=== PATIENT | male | born 1995 | race African-American/Black ===

== ENCOUNTER 2019-07-31 08:24 | Inpatient (IN) | payer MEDICAID, OTHER ==
--- NOTE | 2019-07-31 08:41 | ED ---
General Adult HPI - General Chief complaint: Psychiatric Symptoms Stated complaint: EPS eval Time Seen by Provider: 07/31/19 08:36 Source: patient, police, RN notes reviewed Mode of arrival: ambulatory - History of Present Illness Initial comments: Patient is a pleasant 24-year-old male presenting to the emergency Department with depression and suicidal thoughts. Patient admits that he is schizophrenic and has not been taking his medication. Patient has multiple stressors. No homicidal thoughts. No new physical complaints. Patient does admit to having some hallucinations. Patient also admits to feeling paranoid. Patient has not been sleeping well recently. Patient has not been eating or drinking well. - Related Data Allergies Allergy/AdvReac Type Severity Reaction Status Date / Time No Known Allergies Allergy Verified 07/31/19 08:25 Review of Systems ROS Statement: Those systems with pertinent positive or pertinent negative responses have been documented in the HPI. ROS Other: All systems not noted in ROS Statement are negative. Constitutional: Denies: fever Eyes: Denies: eye pain ENT: Denies: ear pain Respiratory: Denies: cough Cardiovascular: Denies: chest pain Endocrine: Denies: fatigue Gastrointestinal: Denies: abdominal pain Genitourinary: Denies: dysuria Musculoskeletal: Denies: back pain Skin: Denies: rash Neurological: Denies: weakness Psychiatric: Reports: as per HPI Past Medical History Past Medical History: No Reported History Past Surgical History: No Surgical Hx Reported Past Psychological History: Schizophrenia Smoking Status: Current every day smoker Past Alcohol Use History: Occasional Past Drug Use History: Cocaine, Marijuana General Exam Limitations: no limitations General appearance: alert, in no apparent distress Head exam: Present: normocephalic Eye exam: Present: normal appearance Neck exam: Present: normal inspection Respiratory exam: Present: normal lung sounds bilaterally Cardiovascular Exam: Present: regular rate, normal rhythm GI/Abdominal exam: Present: soft. Absent: tenderness Extremities exam: Present: normal inspection Neurological exam: Present: alert Psychiatric exam: Present: flat affect Skin exam: Present: normal color Course Vital Signs 07/31/19 08:25 Temperature 98.8 F Pulse Rate 80 Respiratory 18 Rate Blood Pressure 125/74 O2 Sat by Pulse 98 Oximetry Medical Decision Making - Medical Decision Making Patient seen by mental health services, who will admit. - Lab Data Lab Results 07/31/19 Range/Units 08:34 Urine Opiates Screen Not Detected (NotDetected) Ur Oxycodone Screen Not Detected (NotDetected) Urine Methadone Screen Not Detected (NotDetected) Ur Propoxyphene Screen Not Detected (NotDetected) Ur Barbiturates Screen Not Detected (NotDetected) U Tricyclic Antidepress Not Detected (NotDetected) Ur Phencyclidine Scrn Not Detected (NotDetected) Ur Amphetamines Screen Not Detected (NotDetected) U Methamphetamines Scrn Not Detected (NotDetected) U Benzodiazepines Scrn Detected H (NotDetected) Urine Cocaine Screen Detected H (NotDetected) U Marijuana (THC) Screen Not Detected (NotDetected) Disposition Clinical Impression: Depression, Suicidal ideation, Chronic schizophrenia Disposition: TRANSFER TO PSYCH HOSP/UNIT Is patient prescribed a controlled substance at d/c from ED?: No Referrals: None,Stated [Primary Care Provider] - 1-2 days Decision Time: 10:29
[2019-07-31 10:02] LABS: Amphetamine Screen,Urine Not Detected (NotDetected); Barbiturate Screen,Urine Not Detected (NotDetected); Benzodiazepines Screen,Urine Detected (NotDetected); Cocaine Screen,Urine Detected (NotDetected); Methadone Screen, Urine Not Detected (NotDetected); Opiate Screen,Urine Not Detected (NotDetected); Oxycodone Screen, Urine Not Detected (NotDetected); Phencyclidine Screen,Urine Not Detected (NotDetected); Tricyclic Antidepressant,Urine Not Detected (NotDetected); Urn Cannabinoid Scrn Not Detected (NotDetected)
[2019-07-31] MEDS ORDERED: MAGNESIUM HYDROXIDE 2,400 MG/10 ML CUP PO PRN (12:33)
[2019-07-31] MEDS ORDERED: LORazepam 1 MG TAB PO PRN (12:33)
[2019-07-31] MEDS ORDERED: ACETAMINOPHEN TAB 325 MG TAB PO PRN (12:33)
[2019-07-31] MEDS ORDERED: MAG HYDROX/AL HYDROX/SIMETH 30 ML CUP PO PRN (12:33)
[2019-07-31] MEDS ORDERED: ZIPRASIDONE 20 MG VIAL IM PRN (12:33)
[2019-07-31] MEDS ORDERED: LORazepam 2 MG/ML INJ IM PRN (12:36)
[2019-07-31] MEDS: NICOTINE 7MG/24HR PATCH TRANSDERM SCH (12:56)
[2019-07-31] MEDS ORDERED: INFLUENZA VACCINE (6 MOS+) 60 MCG/0.5 ML SYRINGE IM ONE (12:58)
[2019-07-31 13:00] LABS: Appearance,Urine Clear (Clear); Bacteria,Urine Rare /hpf; Bilirubin,Urine Negative (Negative); Blood,Urine Negative (Negative); Color,Urine Yellow; Glucose,Urine (UA) Negative (Negative); Ketones,Urine Negative (Negative); Leukocyte Esterase,Urine Trace (Negative); Mucus,Urine Few /hpf; Nitrite,Urine Negative (Negative); Protein,Urine Negative (Negative); Specific Gravity,Urine 1.031 (1.001-1.035); Squamous Epithelial Cell,Urine <1 /hpf (0-4); WBC,Urine 1 /hpf (0-5)
--- NOTE | 2019-07-31 13:12 | P.HP ---
Psychiatric H&P - . H&P Date: 07/31/19 History & Physical: IDENTIFYING DATA: The patient is a 24-year-old homeless -Slovak male admitted to the psychiatric unit with complaints of suicidal ideation. HISTORY OF PRESENT ILLNESS: I reviewed the medical record and attempted to interview the patient. He was irritable and minimally cooperative. He stated that he presented to Hospital because he was having "suicidal thoughts". He is unwilling or unable to explained himself further. He repeatedly requested to leave the interview because he was "tired". He denied other symptoms other than having suicidal thoughts. He has been living in [facility] for 3 days. Last night he slept [place] a [place] [facility]. He alleged she came to [place] accidentally after having fallen asleep on a SMART bus from [place] (there are no SMART bus lines from [place] to [place]). According to the EPS assessment the police brought him to the ER. He complained of suicidal ideation. He alleged that he has a history of schizophrenia and was hospitalized in [place]. He told the EPS nurse that he had thought about jumping off a bridge. During our interview he alleged that he was discharged from [place] "a years ago". He acknowledged that he feels depressed but would not answer questions about depressive symptoms or the duration depressive feelings. He denied persistent anxiety that he is unable to control. He denied obsessions or compulsions. He denied experiencing auditory, visual or olfactory hallucinations. He denied ideas reference, thought insertion or thought broadcasting. He denied recent alcohol use. He smoked crack cocaine "couple days ago". He denied use of other drugs just methamphetamine, heroin, or opioid pain medications and marijuana. His UDS was positive for benzodiazepines and cocaine. He is BAT was 0. PAST PSYCHIATRIC HISTORY: He gave conflicting information about his past psychiatric history. This is apparently his second psychiatric hospitalization. He denied that he has been taking psychotropic medications. PAST MEDICAL HISTORY: He denied chronic medical illnesses ALLERGIES: Known drug ALLERGIES SUBSTANCE USE HISTORY: He was guarded about his substance use history. He admitted to recent cocaine use but denied use of other drugs including marijuana. He denied that he had had been admitted to a substance abuse treatment program FAMILY PSYCHIATRIC/SUBSTANCE USE HISTORY: He is unaware of family history of psychiatric or substance use problems LEGAL HISTORY: He denied that he is on probation, parole or has pending charges. According to the EPS assessment he has passed charges of retail fraud. SOCIAL HISTORY: He is born in [place] and raised primarily by his mother. His parents were . Neither his mother father lives in [place]. He has 2 siblings. He alleges he receives no support from his family. He is homeless, unemployed and has no income. MENTAL STATUS EXAM: Appendectomy presented as a disheveled and malodorous to young -Slovak male who was wearing a hospital gown. He was uncooperative and irritable. He made intermittent eye contact. He had no distinguishing features or prominent physical abnormalities. He had an angry facial expression. He is alert and oriented to person, place and time. He showed psychomotor retardation but no abnormal movements. His gait was slow but steady. Her speech was not spontaneous and had decreased rate, rhythm and volume. His affect was irritable but not inappropriate. He describes suicidal ideation and wishes. He denied homicidal ideation. He admitted to feeling hopeless, helpless and worthless. He did not express clear ideas reference or paranoid ideation. He expressed no delusional thoughts or beliefs. His thinking was concrete because associations appeared coherent and logical. He had poverty of speech and poverty of content. He denied hallucinations and did not appear to be responding to internal stimuli. STRENGTHS: Good physical health WEAKNESSES: Lack of housing, lack of income, lack of employment, substance abuse history IMPRESSION:. He is irritable and uncooperative 24-year-old -Slov[place] male who presented to the [facility] with complaints of suicidal ideation. He is homeless and not a resident of [place] or [facility]. He gave a vague and inconsistent explanation as to the reason he came to [place]. He alleges a psychiatric history and a prior diagnosis of schizophrenia. The current problems are the homelessness, depression and a self-reported suicidal ideation. She presented an inpatient basis with combination of multimodal therapy and possibly psychopharmacology. PRINCIPLE DIAGNOSIS: Unspecified mood disorder, suicidal ideation, rule out malingering, rule out major depressive disorder, rule out schizophrenia, rule out schizoaffective disorder, rule out cocaine use disorder, rule out benzodiazepine use disorder, homelessness, lack of income RECOMMENDATION: Admit to the psychiatric unit. Safety precautions. Consult medicine service for initial physical exam and medical history. structural worker to obtain an initial psychosocial assessment and coordinate discharge and aftercare. Obtain collateral information from family and/or [facility]. Ativan 1 mg by mouth 3 times a day when necessary for anxiety or agitation. Geodon 20 mg IM twice a day when necessary for agitation or aggression. Allergies Allergy/AdvReac Type Severity Reaction Status Date / Time No Known Allergies Allergy Verified 07/31/19 08:25 Vital Signs Temp 98.2 F 07/31/19 11:26 Pulse 61 07/31/19 11:26 Resp 19 07/31/19 11:26 BP 103/87 07/31/19 11:26 Pulse Ox 100 07/31/19 11:26 Intake & Output 07/30/19 07/31/19 07/31/19 18:59 06:59 18:59 Weight 63.503 kg Laboratory Last Values Urine Opiates Screen Not Detected (NotDetected) 07/31/19 08:34 Ur Oxycodone Screen Not Detected (NotDetected) 07/31/19 08:34 Urine Methadone Screen Not Detected (NotDetected) 07/31/19 08:34 Ur Propoxyphene Screen Not Detected (NotDetected) 07/31/19 08:34 Ur Barbiturates Screen Not Detected (NotDetected) 07/31/19 08:34 U Tricyclic Antidepress Not Detected (NotDetected) 07/31/19 08:34 Ur Phencyclidine Scrn Not Detected (NotDetected) 07/31/19 08:34 Ur Amphetamines Screen Not Detected (NotDetected) 07/31/19 08:34 U Methamphetamines Scrn Not Detected (NotDetected) 07/31/19 08:34 U Benzodiazepines Scrn Detected (NotDetected) H 07/31/19 08:34 Urine Cocaine Screen Detected (NotDetected) H 07/31/19 08:34 U Marijuana (THC) Screen Not Detected (NotDetected) 07/31/19 08:34 07/31/19 12:50
[2019-07-31] MEDS ORDERED: LOPERAMIDE 2 MG CAP PO PRN (16:21)
[2019-07-31] MEDS ORDERED: ONDANSETRON 4 MG TAB PO PRN (16:21)
--- NOTE | 2019-07-31 16:23 | P.MDCNMH ---
History of Present Illness H&P Date: 07/31/19 Chief Complaint: Medical management 24-year-old male with no significant PMH presents to the ED for major depression and suicidal ideation. He is admitted to mental health unit for further workup and management. [facility] physicians has been consulted for medical management of this patient. Patient currently complains of stomachache has been ongoing for the past 2 hours. Patient also reports 2 episodes of watery diarrhea since that time. He denies any blood in his stool. He denies any melena. He denies any headache, lower extremity edema, nausea or vomiting, fever chills, cough, chest pain, shortness breath, palpitations, or changes in urination. No changes in appetite or weight. He denies any dizziness, numbness/weakness/tingling of the extremities. Review of Systems Pertinent positives and negatives as discussed in HPI, a complete review of systems was performed and all other systems are negative. Past Medical History Past Medical History: No Reported History History of Any Multi-Drug Resistant Organisms: None Reported Past Surgical History: No Surgical Hx Reported Past Psychological History: Schizophrenia Smoking Status: Current every day smoker Past Alcohol Use History: Occasional Past Drug Use History: Cocaine, Marijuana - Past Family History Mother Additional Family Medical History / Comment(s): Lupus Medications and Allergies Allergies Allergy/AdvReac Type Severity Reaction Status Date / Time No Known Allergies Allergy Verified 07/31/19 12:53 Physical Exam Vitals: Vital Signs Temp Pulse Pulse Resp BP BP Pulse Ox 07/31/19 11:58 97.2 F L 60 18 123/71 97 07/31/19 11:26 98.2 F 61 19 103/87 100 07/31/19 08:25 98.8 F 80 18 125/74 98 Intake and Output 07/31/19 07/31/19 07/31/19 06:59 14:59 22:59 Other: Weight 66.2 kg General: [non toxic], [no distress], [appears at stated age] Derm: [warm], [dry] Head: [atraumatic], [normocephalic], [symmetric] Eyes: [EOMI], [no lid lag], [anicteric sclera] Mouth: [no lip lesion], [mucus membranes moist] Cardiovascular: [S1S2 reg], [no murmur], [positive posterior tibial pulse bilateral], Lungs: [CTA bilateral], [no rhonchi, no rales] , [no accessory muscle use] Abdominal: [soft], [ nontender to palpation], [no guarding], [no appreciable organomegaly] Ext: [no gross muscle atrophy], [no edema], [no contractures] Neuro: [ CN II-XI grossly intact], [no focal neuro deficits] Psych: [Alert], [oriented], [appropriate affect] Cranial Nerve Examination - Cranial Nerves Cranial Nerve II- Optic: Intact Cranial Nerve III- Oculomotor: Intact Cranial Nerve IV- Trochlear: Intact Cranial Nerve V- Trigeminal: Intact Cranial Nerve - Abducens: Intact Cranial Nerve VII- Facial: Intact Cranial Nerve VIII- Auditory: Intact Cranial Nerve IX- Glossopharyngeal: Intact Cranial Nerve X- Vagus: Intact Cranial Nerve XI- Accessory: Intact Cranial Nerve XII- Hypoglossal: Intact Results Labs: Abnormal Lab Results - Last 24 Hours (Table) 07/31/19 07/31/19 Range/Units 08:34 08:34 Ur Leukocyte Esterase Trace H (Negative) Urine Bacteria Rare H (None) /hpf Urine Mucus Few H (None) /hpf U Benzodiazepines Scrn Detected H (NotDetected) Urine Cocaine Screen Detected H (NotDetected) Assessment and Plan Assessment: Gastroenteritis Smoker Polysubstance abuse Abnormal urinalysis As per symptoms. Symptoms only lasted for 1 day. Plans: Symptomatic manageme nt. Encourage hydration by mouth. Tylenol as needed for fever. Zofran as needed for nausea or vomiting. Imodium as needed for diarrhea. Patient smokes half pack of cigarettes daily for the past 7 years. We'll plan on offering nicotine patch. UDS is positive for marijuana and cocaine. His agitation can be treated with Ativan IM as needed. Urinalysis shows positive leukocyte esterase. Patient is asymptomatic. There is nothing further to do.
[2019-08-01] MEDS: NICOTINE 7MG/24HR PATCH TRANSDERM SCH (08:39)
[2019-08-01 08:42] LABS: Basophils % (A) 0 %; Eosinophils # (A) 0.6 k/uL (0-0.7); Eosinophils % (A) 11 %; HCT 43.8 % (39.0-53.0); HGB 13.6 gm/dL (13.0-17.5); Hypochromasia Slight; Lymphocytes # (A) 1.4 k/uL (1.0-4.8); Lymphocytes % (A) 25 %; MCV 77.6 fL (80.0-100.0); Mean Platelet Volume 6.9; Monocytes # (A) 0.3 k/uL (0-1.0); Monocytes % (A) 5 %; Neutrophils # (A) 3.2 k/uL (1.3-7.7); Neutrophils % (A) 56 %; Platelet Count 337 k/uL (150-450); RBC 5.64 m/uL (4.30-5.90); RDW 14.6 % (11.5-15.5); WBC 5.6 k/uL (3.8-10.6)
[2019-08-01 08:49] LABS: ALT 13 U/L (4-49); AST 22 U/L (17-59); African American GFR (CKD) >90 (>60 ml/min/1.73 sqM); Albumin 4.1 g/dL (3.5-5.0); Alkaline Phosphatase 58 U/L (38-126); Anion Gap 8 mmol/L; Blood Urea Nitrogen 14 mg/dL (9-20); Calcium 9.7 mg/dL (8.4-10.2); Carbon Dioxide 27 mmol/L (22-30); Chloride 102 mmol/L (98-107); Cholesterol 157 mg/dL (<200); Glucose 92 mg/dL (74-99); HDL Cholesterol 66 mg/dL (40-60); LDL Cholesterol,Calculated 77 mg/dL (0-99); Non-African American GFR(CKD) >90 (>60 ml/min/1.73 sqM); Potassium 4.1 mmol/L (3.5-5.1); Sodium 137 mmol/L (137-145); Total Bilirubin 0.5 mg/dL (0.2-1.3); Total Protein 7.6 g/dL (6.3-8.2); Triglycerides 68 mg/dL (<150)
--- NOTE | 2019-08-01 12:10 | P.PN ---
Progress Note - Text Interval history: The patient is found in his room he follows me to an interview room. He was admitted for suicidal ideation. He serves as a partial historian. He states that he has been previously diagnosed with schizophrenia but is on no medications. He reports that his last hospitalization was at [facility] one year ago. He has been homeless for about 1 year and this has been overwhelming. He has not been attending groups he indicates that he has been eating meals. He was found sleeping in his room late into the morning he indicates he didn't sleep last night. He states that he doesn't want any medication prescribed for schizophrenia but does want medication for sleep. He states that in the past he was on Seroquel 500 mg and that worked very well. We discussed starting Seroquel at a lower dose and possibly titrating further and he is agreeable. He states that just prior to coming to the hospital he was experiencing visual hallucinations in the form of shadows. He states he does have thoughts that people can read his mind and he can read other's minds. He endorses ideas of reference where he will receive messages from the TV. His symptoms are confounded by the presence of cocaine in his urine drug screen. Mental status exam: The patient is a thin -Filipino male appearing his stated age he is disheveled hygiene is impaired he is dressed in a T-shirt an oversized jeans. Eye contact is staring in nature. For the most part his affect has little range although twice during the session he demonstrated some smiling. When asking about ideas of reference he started to laugh and stated "you know what I've been thinking". He initially was mildly irritable but that seemed to reduce during the session. He demonstrated no verbal or physical aggressiveness see demonstrates no involuntary repetitive movements. He appears tired and excessively yawns. He states that he had suicidal thoughts yesterday but those are "better now" he reports no homicidal ideation intent or plan. Insight and judgment limited. He does demonstrate psychomotor slowing. He demonstrates no tangential thinking loose associations or flight of ideas. He has little spontaneous speech but provides answers to questions. Plan: The patient will be started on Seroquel 50 mg at bedtime we may need to titrate this further of course. We're still trying to evaluate his presenting symptoms. It's unclear if the reported symptoms of psychosis are due to recent use of cocaine or part of a chronic psychiatric condition. He is encouraged to participate in the milieu vital signs reviewed. He requires continued psychiatric hospitalization for evaluation and treatment.
[2019-08-01 20:26] LABS: Hemoglobin A1C 5.8 % (4.0-6.0)
[2019-08-01] MEDS ORDERED: QUEtiapine 50 MG TAB PO SCH (21:00)
[2019-08-02] MEDS: NICOTINE 7MG/24HR PATCH TRANSDERM SCH (08:33)
--- NOTE | 2019-08-02 13:13 | P.PN ---
Progress Note - Text Interval history: The patient's found in his room sleeping he follows me to an interview room. He reports his mood is okay. He made no phone calls had no visits last evening he anticipates none today. He has been isolating in his room and not participating in group. We reviewed the Seroquel he is asking to titrate the dose to 100 mg at bedtime. Staff recorded he slept 6 hours last evening. Mental status exam: The patient is a thin -[place] Leone[place] male appearing his stated age. He is dressed in hospital gowns. Eye contact is staring in nature. He maintains a flat affect. He initiates no conversation but will answer questions briefly. At times he appears distracted. He demonstrates no verbal or physical aggressiveness he demonstrates no involuntary repetitive movements. He denies having any suicidal or homicidal ideation intent or plan. He is reporting no auditory or visual hallucinations. He does appear guarded he may be underreporting symptoms. Insight and judgment limited. He indicates that he feels safe here in the hospital. Plan: We will continue the Seroquel we will titrate to 100 mg at bedtime. We will monitor him for safety is encouraged to participate in the milieu. Vital signs reviewed. He requires continued psychiatric evaluation and treatment.
[2019-08-02] MEDS: QUEtiapine 100 MG TAB PO SCH (20:43)
[2019-08-03] MEDS: NICOTINE 7MG/24HR PATCH TRANSDERM SCH (09:18)
--- NOTE | 2019-08-03 14:01 | P.PN ---
Subjective Progress Note Date: 08/03/19 Principal diagnosis: Unspecified mood disorder, suicidal ideation, rule out malingering, rule out major depressive disorder, rule out schizophrenia, rule out schizoaffective disorder, rule out cocaine use disorder, rule out benzodiazepine use disorder, homelessness, lack of income I reviewed the medical record, interviewed the patient and discuss his treatment and treatment plan during team meeting. He spends his time in bed coming out only for meals. He does not participate in therapeutic groups or activities or interact with staff or peers. He requested to be discharge alleging that he has a "court case in [place] the next few days." I was unable to get him to talk about the nature of his legal problems. He requested a "bus ticket". The director social also spoke with him and was unable to obtain any additional information. He denied suicidal ideation. He denied experiencing auditory, visual or olfactory hallucinations. I was unable to reach his mother to obtain collateral information. Objective - Vital Signs Vital signs: Vital Signs Temp 97.8 F 08/03/19 06:57 Pulse 60 08/03/19 06:57 Resp 17 08/03/19 06:57 BP 99/52 08/03/19 06:57 Pulse Ox 99 08/03/19 06:57 Intake & Output 08/02/19 08/03/19 08/03/19 18:59 06:59 18:59 Weight 65.8 kg - Exam He presented a guarded and suspicious 24-year-old -Turkish male who was minimally cooperative with the interview. He would not get out of bed and answered questions with brief statements. He had a blunted facial expression. He showed psychomotor retardation but no abnormal movements. His speech was not spontaneous and had decreased rate, rhythm and volume. His affect was blunted. He denied suicidal ideation, wishes, and homicidal ideation. He did not express feelings of hopelessness, helplessness or worthlessness. He ruminated about "legal problems". He did not express clear ideas reference, paranoid ideation or delusions. His thinking was concrete and associations appeared organized. He showed poverty of speech and poverty of content of speech. He did not appear to be responding to internal stimuli. - Labs CBC & Chem 7: 08/01/19 08:19 08/01/19 08:19 Assessment and Plan Assessment: He is chronically homeless 23-year-old male who presented with complaints of depression and suicidal ideation. He gave a history of prior psychiatric hospitalizations, treatment with antipsychotic medications and a diagnosis of schizophrenia. He remains minimally cooperative and not engaged with the therapeutic milieu. Plan: Consider discharge on 08/04/2019. Continue with current treatment and treatment plan including Seroquel 100 mg at bedtime. Social workers reaching out to family to obtain collateral information and to assist with disposition and aftercare. Encourage participation in therapeutic groups and activities. Evaluate clinical status response to treatment on a daily basis.
[2019-08-03] MEDS: QUEtiapine 100 MG TAB PO SCH (21:34)
[2019-08-04 06:59] VITALS: BP 113/75; PULSE 61; RESP 16; TEMP 98.3
[2019-08-04] MEDS: NICOTINE 7MG/24HR PATCH TRANSDERM SCH (08:48)
--- NOTE | 2019-08-04 15:08 | P.DS ---
Providers Date of admission: 07/31/19 11:25 Attending physician: Kamran Peters MD Consults: 07/31/19 12:33 Consult Physician Routine Consulting Provider: Devyn Burns Consult Reason/Comments: H&P for mental health admission Do you want consulting provider notified?: Yes Primary care physician: Stated None - Discharge Diagnosis(es) (1) Suicidal ideation Status: Resolved Priority: Low (2) Cocaine use disorder Status: Chronic Priority: High (3) Sedative, hypnotic or anxiolytic abuse, unspecified Status: Chronic Priority: Medium (4) Homelessness Status: Chronic Priority: High (5) Income insufficient to meet needs Status: Chronic Priority: High (6) Chronic schizophrenia Status: Chronic Priority: Medium (7) Depression Status: Resolved Priority: Low (8) Alcohol use disorder Status: Chronic Priority: Medium Hospital Course: The patient is a 24-year-old homeless -[place] male admitted to the psychiatric unit with complaints of suicidal ideation. He was irritable and minimally cooperative during the initial assessment. He stated that he presented to Hospital because he was having "suicidal thoughts". He is unwilling or unable to explained himself further. He repeatedly requested to leave the interview because he was "tired". He denied other symptoms other than having suicidal thoughts. He has been living in [facility] for [facility]. Last night he slept at a local jail. He alleged she came to [place] accidentally after having fallen asleep on a [employer] bus from [place] (there are no SMART bus lines from [place] to [place]). According to the EPS assessment the police brought him to the ER. He complained of suicidal ideation. He alleged that he has a history of schizophrenia and was hospitalized in [place]. He told the EPS nurse that he had thought about jumping off a bridge. During our interview he alleged that he was discharged from [facility] "a years ago". He acknowledged that he feels depressed but would not answer questions about depressive symptoms or the duration depressive feelings. He denied persistent anxiety that he is unable to control. He denied obsessions or compulsions. He denied experiencing auditory, visual or olfactory hallucinations. He denied diana as reference, thought insertion or thought broadcasting. He denied recent alcohol use. He smoked crack cocaine "couple days ago". He denied use of other drugs just methamphetamine, heroin, or opioid pain medications and marijuana. His UDS was positive for benzodiazepines and cocaine. He is BAT was 0. We admitted the psychiatric unit voluntarily under the care of this short story writer. We provided a copy a biopsychosocial assessment. The moving consultant brim raiser completed initial physical exam and medical history and diagnosed tobacco use and gastroenteritis. We started Seroquel 100 mg at bedtime for treatment of his chronic mental illness. He spent most of his hospital stay in bed coming out only for meals. He did not participate in therapeutic groups and activities. He did not interact with staff or peers. He was minimally cooperative during encounters with staff. fruit farmworker spoke with his mother. His mother stated that The was "not a good crowd". They "steal from him." He has "burned his bridges" with his family. She believes he needs help with his alcohol use but would not accept treatment. The social psychologist spoke with him several times about residential substance abuse treatment. She gave him information on accessing services but he did not follow through with the recommendation. Time discharge she presented as a thin casually groomed 24-year-old [place] male who was guarded. He made eye contact and appeared to attend to interview. He showed psychomotor retardation but no abnormal movements. His speech was nonspontaneous had decreased rate and rhythm. His affect was flat. He denied suicidal ideation or wishes. He did not express clear feelings of hopelessness, helplessness or worthlessness. He did not express ideas reference, paranoid ideation or delusions. His thinking was concrete but his associations were coherent and logical. He denied hallucinations did not appear to be responding to internal stimuli. Patient Condition at Discharge: Stable Plan - Discharge Summary Discharge Rx Participant: Yes New Discharge Prescriptions: New QUEtiapine [SEROquel] 100 mg PO HS #30 tab Discharge Medication List QUEtiapine [SEROquel] 100 mg PO HS #30 tab 08/04/19 [Rx] Follow up Appointment(s)/Referral(s): [facility] [Outside] - 08/06/19 8:30 am (walk in intake ) None,Stated [Primary Care Provider] - 1-2 days Patient Instructions/Handouts: How to Stop Smoking (DC), Mood Disorders (DC) Activity/Diet/Wound Care/Special Instructions: Activity and diet as tolerated. Avoid the use of street drugs and alcohol. Take all medications as prescribed. When you are in need of refills on your medications please contact your medical provider and/or outpatient psychiatrist to have this done. Please go to scheduled outpatient appointment for aftercare treatment. If symptoms return or become worse, call the crisis line at and/or go to the nearest emergency room for evaluation. Discharge Disposition: HOME SELF-CARE
== END 2019-08-04 14:50 | disposition home or self-care (01) | DRG 885 ==
LOC: EC 08:24 → 3MHU 11:25
PROVIDERS: ADMIT Psychiatry & Neurology Psychiatry; ATTEND Psychiatry & Neurology Psychiatry
DX: F20.9 Schizophrenia, unspecified (principal); R45.851 Suicidal ideations; F32.9 Major depressive disorder, single episode, unspecified; F14.10 Cocaine abuse, uncomplicated; K52.9 Noninfective gastroenteritis and colitis, unspecified; F17.210 Nicotine dependence, cigarettes, uncomplicated; F13.10 Sedative, hypnotic or anxiolytic abuse, uncomplicated; F10.10 Alcohol abuse, uncomplicated; R41.843 Psychomotor deficit; Z71.6 Tobacco abuse counseling; Z91.14 Patient's other noncompliance with medication regimen; Z59.0 Homelessness; Z56.0 Unemployment, unspecified; Z83.2 Family history of diseases of the blood and blood-forming organs and certain disorders involving the immune mechanism
CPT/HCPCS: 80053; 80061; 80306; 81001; 82075; 83036; 84443; 85025; 90686; 99285